=== PATIENT | female | born 1985 | race Two or more races ===

== ENCOUNTER 2018-02-22 08:50 | Outpatient (CLI) | payer OTHER | END 2018-02-22 08:58 | disposition home or self-care (01) | LOC: RX STUDY 08:50 | DX: N97.1 Female infertility of tubal origin (principal) ==

== ENCOUNTER 2018-04-25 10:35 | Outpatient (CLI) | payer OTHER | END 2018-04-25 10:44 | disposition home or self-care (01) | LOC: SONOGRAMA 10:35 | DX: N84.8 Polyp of other parts of female genital tract (principal) ==